=== PATIENT | female | born 1985 | race Hispanic/Latino ===

== ENCOUNTER 2017-07-17 18:23 | Observation (INO) | payer MEDICAID, OTHER ==
[~2017-07-17 18:23] MED LIST: CIPR-245 PO
[2017-07-17 19:55] LABS: AMPHET/METH SCREEN,URINE NEGATIVE (NEGATIVE); BARBITURATE SCREEN, URINE NEGATIVE (NEGATIVE); BENZODIAZEPINES SCREEN,URINE NEGATIVE (NEGATIVE); CANNABINOID SCREEN,URINE NEGATIVE (NEGATIVE); COCAINE SCREEN,URINE NEGATIVE (NEGATIVE); OPIATE SCREEN,URINE NEGATIVE (NEGATIVE); PHENCYCLIDINE SCREEN,URINE NEGATIVE (NEGATIVE)
[2017-07-17] MEDS ORDERED: LACTATED RINGERS 1000ML 1,000 ML IV PRN (20:23)
[2017-07-17] MEDS ORDERED: BUTORPHANOL TARTRATE 2 MG/ML IVP ONE (20:30)
[2017-07-17 20:36] LABS: HEMATOCRIT 32.5 % (36-48); MEAN CORPUSCULAR HEMOGLOBIN 29.4 pg (27.0-33.0); MEAN CORPUSCULAR HGB CONC 35.4 g/dL (32.0-36.0); MEAN CORPUSCULAR VOLUME 82.9 fL (79-99); PLATELET COUNT (AUTO) 250 K/uL (130-400); RED BLOOD CELL COUNT(AUTO) 3.91 MIL/uL (4.00-5.50); RED CELL DISTRIBUTION WIDTH 13.8 % (11.0-15.5); WHITE BLOOD COUNT (AUTO) 9.6 K/uL (4.8-10.8)
[2017-07-17 20:43] LABS: APPEARANCE,URINE Clear (CLEAR); BILIRUBIN,URINE Negative (NEGATIVE); COLOR,URINE Yellow (YELLOW); GLUCOSE, URINE (UA) Negative (NEGATIVE); KETONES,URINE 40 mg/dL (NEGATIVE); LEUKOCYTE ESTERASE ,URINE Negative (NEGATIVE); NITRATE,URINE Negative (NEGATIVE); OCCULT BLOOD,URINE Negative (NEGATIVE); PH,URINE 5.5 (5.0-8.0); PROTEIN,URINE Negative (NEGATIVE)
[2017-07-18 08:06] LABS: RAPID PLASMA REAGIN NONREACTIVE (NONREACTIVE)
[2017-07-19 09:17] LABS: HEPATITIS Bs ANTIGEN SCREEN P Negative (Negative)
== END 2017-07-18 07:02 | disposition home or self-care (01) ==
LOC: EDH 18:23 → LDH 18:33
PROVIDERS: ADMIT Obstetrics & Gynecology; ATTEND Obstetrics & Gynecology
DX: O26.893 Other specified pregnancy related conditions, third trimester (principal); R10.30 Lower abdominal pain, unspecified; Z3A.33 33 weeks gestation of pregnancy
CPT/HCPCS: 36415; 76805; 80305; 81003; 85027; 86592; 86701; 86850; 86900; 86901; 87340; 87390; 96361 ×3; 96374; 99285; G0378 ×12; J0595; J7120; 96360

== ENCOUNTER 2017-08-19 18:36 | Inpatient (IN) | payer MEDICAID ==
[~2017-08-19] VITALS: Ht 157.5 cm; Wt 105.2 kg
[2017-08-19] MEDS ORDERED: DINOPROSTONE 10 MG VAGINAL SUPP VG SCH (19:30)
[2017-08-19] MEDS ORDERED: AMPICILLIN 2GM+NS 100ML 100 ML IV SCH (19:30)
[2017-08-19 19:35] LABS: APPEARANCE,URINE Cloudy (CLEAR); BILIRUBIN,URINE Negative (NEGATIVE); COLOR,URINE Yellow (YELLOW); GLUCOSE, URINE (UA) Negative (NEGATIVE); KETONES,URINE Negative (NEGATIVE); LEUKOCYTE ESTERASE ,URINE Trace (NEGATIVE); NITRATE,URINE Negative (NEGATIVE); OCCULT BLOOD,URINE Negative (NEGATIVE); PROTEIN,URINE Negative (NEGATIVE); UROBILINOGEN,URINE 0.2 mg/dL (0.2-1.0)
[2017-08-19 19:48] LABS: SQUAMOUS EPITHELIAL CELL,UR TNTC /HPF (0-2)
[2017-08-19 19:49] LABS: MUCUS,URINE Few LPF (None Seen); RBC,URINE 0-1 /HPF (0-1)
[2017-08-19 19:50] LABS: BACTERIA,URINE Moderate /HPF (None Seen); YEAST,URINE BUDDING Few /HPF (None Seen)
[2017-08-19 20:26] LABS: MEAN CORPUSCULAR HEMOGLOBIN 27.5 pg (27.0-33.0); MEAN CORPUSCULAR HGB CONC 33.5 g/dL (32.0-36.0); MEAN CORPUSCULAR VOLUME 82.1 fL (79-99); PLATELET COUNT (AUTO) 255 K/uL (130-400); RED BLOOD CELL COUNT(AUTO) 4.26 MIL/uL (4.00-5.50); RED CELL DISTRIBUTION WIDTH 14.4 % (11.0-15.5); WHITE BLOOD COUNT (AUTO) 11.3 K/uL (4.8-10.8)
[2017-08-19] MEDS: LACTATED RINGERS 1000ML 1,000 ML IV PRN (20:26)
[2017-08-20] MEDS: AMPICILLIN 1GM+NS 50ML 50 ML IV SCH ×2 (00:17→04:04)
[2017-08-20] MEDS ORDERED: LACTATED RINGERS 1000ML 1,000 ML IV ONE ×2 (04:48→23:04)
[2017-08-20] MEDS ORDERED: OXYTOCIN 10 USP UNITS/ML ONE ×3 (04:48→23:04)
[2017-08-20] MEDS ORDERED: OXYTOCIN 10 USP UNITS/ML 20 UNIT in LACTATED RINGERS 1000ML 1,000 ML IV SCH ×2 (05:00→18:00)
[2017-08-20] MEDS: LACTATED RINGERS 1000ML 1,000 ML IV PRN (06:40)
[2017-08-20] MEDS ORDERED: FENTANYL CITRATE PF 50 MCG/1 ML 2ML VIAL ONE ×2 (19:55→20:29)
[2017-08-20] MEDS ORDERED: CEFAZOLIN SODIUM 1 GM VIAL ONE (19:57)
[2017-08-20] MEDS ORDERED: CARBOPROST TROMETHAMINE 250 MCG/ML AMP IM ONE (19:58)
[2017-08-20] MEDS ORDERED: METHYLERGONOVINE MALEATE 0.2 MG/1 ML ML ONE (19:58)
[2017-08-20] MEDS ORDERED: CEFAZOLIN SODIUM 1 GM VIAL IVP PRN (20:00)
[2017-08-20] MEDS ORDERED: LACTATED RINGERS 1000ML 1,000 ML IV SCH (20:00)
[2017-08-20] MEDS ORDERED: MIDAZOLAM HCL 1 MG/ML 2ML VIAL ONE (20:29)
[2017-08-20] MEDS ORDERED: DURAMORPH PF1 MG/ML 10ML AMP IV ONE (20:32)
[2017-08-20] MEDS ORDERED: OXYTOCIN-LR 20 UNITS/1000 ML 1,000 ML IV PRN (20:47)
[2017-08-20] MEDS ORDERED: MEPERIDINE-PF 75 MG/ML SYG IM PRN (21:00)
[2017-08-20] MEDS ORDERED: PROMETHAZINE HCL 25 MG/ML 1ML AMPULE IM PRN ×2 (21:00→22:00)
[2017-08-20] MEDS ORDERED: SODIUM CHLORIDE 0.9% 10 ML VIAL IVP PRN (21:00)
[2017-08-20] MEDS ORDERED: DEXTROSE 5 %-0.45 % NACL 1,000 ML IV PRN (21:00)
[2017-08-20] MEDS ORDERED: NALOXONE HCL 0.4 MG/1 ML ML IVP PRN ×2 (22:00)
[2017-08-20] MEDS ORDERED: ONDANSETRON HCL 4 MG/2 ML 8 MG in SODIUM CHLORIDE 0.9% 50 ML IVP NR (22:00)
[2017-08-20] MEDS ORDERED: HYDROCODONE/ACETAMINOPHEN 5/325 MG TAB PO PRN (22:00)
[2017-08-20] MEDS ORDERED: ONDANSETRON HCL MDV 20ML 2 MG/ML VIAL IVP PRN ×2 (22:00)
[2017-08-20] MEDS ORDERED: METOCLOPRAMIDE 10 MG/2 ML VIAL IVP PRN (22:00)
[2017-08-20] MEDS ORDERED: DiphenhydrAMINE HCL 50 MG/ML VIAL IVP PRN (22:00)
[2017-08-20] MEDS ORDERED: MORPHINE SULFATE 2 MG/ML 1ML SYG IVP PRN (22:00)
[2017-08-20] MEDS ORDERED: EPHEDRINE SULFATE 50 MG/ML AMPULE IVP PRN (22:00)
[2017-08-21 01:00] VITALS: BP 105/63
[2017-08-21 03:40] VITALS: BP 111/60
[2017-08-21] MEDS: HYDROCODONE/ACETAMINOPHEN 5/325 MG TAB PO PRN ×2 (07:09→21:05)
[2017-08-21 07:17] LABS: HEMATOCRIT 31.3 % (36-48); MEAN CORPUSCULAR HEMOGLOBIN 27.6 pg (27.0-33.0); MEAN CORPUSCULAR HGB CONC 33.3 g/dL (32.0-36.0); MEAN CORPUSCULAR VOLUME 82.8 fL (79-99); PLATELET COUNT (AUTO) 215 K/uL (130-400); RED BLOOD CELL COUNT(AUTO) 3.78 MIL/uL (4.00-5.50); RED CELL DISTRIBUTION WIDTH 14.2 % (11.0-15.5); WHITE BLOOD COUNT (AUTO) 11.5 K/uL (4.8-10.8)
[2017-08-21] MEDS ORDERED: HYDROCODONE/ACETAMINOPHEN 5/325 MG TAB PO PRN (07:30)
[2017-08-21] MEDS ORDERED: BISACODYL 10 MG SUPP.RECT RC PRN (07:30)
[2017-08-21] MEDS ORDERED: DIPHENHYDRAMINE HCL 25 MG CAPSULE PO PRN (07:30)
[2017-08-21] MEDS ORDERED: ACETAMINOPHEN EXTRA STRENGTH 500 MG TABLET PO PRN (07:30)
[2017-08-21] MEDS: AMPICILLIN 1GM+NS 50ML 50 ML IV SCH ×2 (07:30→11:30)
[2017-08-21] MEDS ORDERED: LANOLIN 30GM OINTMENT TP PRN (07:30)
[2017-08-21 07:34] VITALS: BP 130/69
[2017-08-21] MEDS: DOCUSATE SODIUM 100 MG CAP PO SCH ×2 (08:13→20:51)
[2017-08-21] MEDS: IBUPROFEN 800 MG TAB PO SCH ×4 (08:13→23:59)
[2017-08-21] MEDS: SIMETHICONE 80 MG TAB.CHEW PO PRN ×4 (08:13→20:51)
[2017-08-21 08:24] LABS: HEPATITIS Bs ANTIGEN SCREEN P Negative (Negative)
[2017-08-21 11:25] VITALS: BP 125/82
[2017-08-21] MEDS: ACETAMINOPHEN-CODEINE 300/30MG TAB PO PRN ×2 (12:11→18:58)
[2017-08-21 15:25] VITALS: BP 109/59
[2017-08-21] MEDS: DIPH,PERTUSS(ACELL),TET VAC/PF 0.5 ML VIAL IM SCH (15:56)
[2017-08-21 19:18] VITALS: BP 98/65
[2017-08-22 00:03] VITALS: BP 97/55
[2017-08-22 04:30] VITALS: BP 104/54
[2017-08-22] MEDS: IBUPROFEN 800 MG TAB PO SCH ×4 (05:00→15:58)
[2017-08-22] MEDS: ACETAMINOPHEN-CODEINE 300/30MG TAB PO PRN ×2 (05:36→18:40)
[2017-08-22 07:15] VITALS: BP 106/52
[2017-08-22] MEDS: DIPH,PERTUSS(ACELL),TET VAC/PF 0.5 ML VIAL IM SCH (07:30)
[2017-08-22] MEDS: SIMETHICONE 80 MG TAB.CHEW PO PRN ×2 (08:23→18:40)
[2017-08-22] MEDS: DOCUSATE SODIUM 100 MG CAP PO SCH (08:23)
[2017-08-22 11:24] VITALS: BP 121/72
[2017-08-22 15:42] VITALS: BP 124/73
[2017-08-22 20:12] VITALS: BP 125/66
== END 2017-08-22 20:35 | disposition home or self-care (01) | DRG 540 ==
LOC: INTOOBSV 18:36 → LDH 18:36 → OBSVTOIN 18:36 → WSH 08-21 01:26
PROVIDERS: ADMIT Obstetrics & Gynecology; ATTEND Obstetrics & Gynecology
PROC: 10D00Z1 Extraction of Products of Conception, Low, Open Approach (ICD-10-PCS; principal; 2017-08-20 20:26)
PROC: 3E0234Z Introduction of Serum, Toxoid and Vaccine into Muscle, Percutaneous Approach (ICD-10-PCS; 2017-08-21)
DX: O62.0 Primary inadequate contractions (principal); O61.9 Failed induction of labor, unspecified; O77.0 Labor and delivery complicated by meconium in amniotic fluid; Z23 Encounter for immunization; Z37.0 Single live birth; Z3A.40 40 weeks gestation of pregnancy; O99.824 Streptococcus B carrier state complicating childbirth; O62.1 Secondary uterine inertia
CPT/HCPCS: 36415; 59510; 81001; 85027; 86592; 86850; 86900; 86901; 87340; 90715; A4314; A4450; A4606; J0290; J0690; J2210; J2250; J2274; J2590; J3010; J3490; J7120

== ENCOUNTER 2018-10-17 14:19 | Emergency (ER) | payer MEDICAID, OTHER | END 2018-10-17 15:04 | disposition home or self-care (01) | LOC: EDH 14:19 | DX: M62.830 Muscle spasm of back (principal); M25.511 Pain in right shoulder; M25.512 Pain in left shoulder; V49.50XA Passenger injured in collision with unspecified motor vehicles in traffic accident, initial encounter; Y93.89 Activity, other specified; Y92.89 Other specified places as the place of occurrence of the external cause; Y99.8 Other external cause status ==

== ENCOUNTER 2019-06-23 17:11 | Emergency (ER) | payer SELFPAY ==
[2019-06-23] MEDS ORDERED: IPRATROPIUM/ALBUTEROL SULFATE 3 ML SOLUTION IH ONE (18:13)
== END 2019-06-23 18:56 | disposition home or self-care (01) ==
LOC: EDH 17:11
DX: J11.1 Influenza due to unidentified influenza virus with other respiratory manifestations (principal); Z98.890 Other specified postprocedural states
CPT/HCPCS: 94640